=== PATIENT | male | born 1980 | race Hispanic/Latino ===

== ENCOUNTER 2018-08-27 11:39 | Emergency (ER) | payer OTHER ==
[2018-08-27] MEDS ORDERED: MOTRIN 600 MG PO ONE (11:58)
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
[2018-08-27 12:13] VITALS: O2SAT 98
[2018-08-27] MEDS ORDERED: MOTRIN 600 MG ONE (12:14)
[2018-08-27 13:08] VITALS: BP 120/70; PULSE 69
--- NOTE | 2018-08-27 23:56 | XRAY ---
Indication: Pain following injury one month ago. Comparison: None 3 views of the left ankle obtained. No bony, articular, or soft tissue abnormalities.
--- NOTE | 2018-08-28 00:06 | XRAY ---
Indication: Pain following injury one month ago. Comparison: None 3 nonweightbearing views of the left foot obtained. No bony, articular, or soft tissue abnormalities.
== END 2018-08-27 13:24 | disposition home or self-care (01) ==
LOC: ED 11:39
DX: S96.812A Strain of other specified muscles and tendons at ankle and foot level, left foot, initial encounter (principal); W22.8XXA Striking against or struck by other objects, initial encounter; M25.572 Pain in left ankle and joints of left foot
CPT/HCPCS: 73610; 73630; 99284; A9270-GY